=== PATIENT | female | born 1985 | race Caucasian/White ===

== ENCOUNTER 2017-01-18 15:15 | Emergency (ER) ==
[2017-01-18 15:25] VITALS: BP 120/68
[2017-01-18 15:28] LABS: URINE SOURCE CLEAN CATCH
[2017-01-18 15:29] LABS: BILIRUBIN URINE NEGATIVE (NEGATIVE); BLOOD URINE 3+ (NEGATIVE); CLARITY SL. CLOUDY (CLEAR); COLOR YELLOW; GLUCOSE URINE NEGATIVE (NEGATIVE); LEUKOCYTES URINE 2+ (NEGATIVE); NITRITE URINE NEGATIVE (NEGATIVE); PROTEIN URINE NEGATIVE (NEGATIVE); UROBILINOGEN URINE NORMAL
[2017-01-18 15:47] LABS: URINE EPITHELIAL CELLS >10 /HPF (<10)
[2017-01-18 15:48] LABS: URINE CAST NONE SEEN /LPF; URINE CRYSTAL NONE SEEN /HPF; URINE CULTURE PL NEEDED? YES
== END 2017-01-18 17:09 | disposition left against medical advice (07) ==
LOC: P.ED 15:15
DX: M54.5 Low back pain (principal)
CPT/HCPCS: 81001; 87088

== ENCOUNTER 2017-08-21 00:39 | Inpatient (IN) ==
--- NOTE | 2017-08-21 01:10 | EKG Report ---
Test Performed on : 08/21/2017 01:05:54 AM Test Reason : SOB Blood Pressure : / mmHG Vent. Rate : 095 BPM Atrial Rate : 095 BPM P-R Int : 132 ms QRS Dur : 072 ms QT Int : 358 ms P-R-T Axes : 072 044 040 degrees QTc Int : 449 ms Normal sinus rhythm. Possible Left atrial enlargement Borderline ECG When compared with ECG of 05-NOV-2016 09:27, Vent. rate has increased BY 50 BPM Unconfirmed Result
[2017-08-21] MEDS ORDERED: HYDROXYZINE PO ONE (01:27)
[2017-08-21 01:48] LABS: MANUAL DIFF NEEDED? NO
[2017-08-21 01:49] LABS: BASO% 0.2 % (0.0-0.8); EOS# 0.23 X1000 (0.0-0.7); EOS% 1.5 % (0.0-10.0); HEMATOCRIT 41.2 % (37.0-47.0); HEMOGLOBIN 14.4 g/dL (12.0-16.0); IMM GRAN# 0.06 X1000 (0.0-0.04); IMM GRAN% 0.4 % (0.0-0.5); LYMPH# 2.79 X1000 (1.2-3.4); LYMPH% 18.7 % (20.5-51.1); MCH 33.6 PG (27-31); MONO# 1.28 X1000 (0.11-0.59); MONO% 8.6 % (1.7-9.3); MPV 8.9 FL (7.4-10.4); NEUT% 70.6 % (42.2-75.2); PLT 566 X1000 (130-400); RBC 4.29 XMIL (4.2-5.4)
[2017-08-21] MEDS ORDERED: HYDROXYZINE ONE (01:53)
[2017-08-21 02:29] LABS: BE 0.8 mmoll (-3.0-3.0); BLOOD TYPE ARTERIAL; DRAW SITE R RADIAL; METHB 1.5 % (0.0-1.5); O2(CT) 16.2 mL/dL (15.0-23.0); PCO2(98.6) 39 mmHg (35-45); PO2(98.6) 55 mmHg (60-100); SAMPLE BLOOD; SAO2 94.5 % (95.0-100.0); THB 13.1 g/dL (11.5-17.4); pH(98.6) 7.42 (7.35-7.45)
[2017-08-21 02:30] LABS: UR AMPHETAMINES QUAL NONE DETECTED (NONE DETECT); UR BARBITUATES QUAL NONE DETECTED (NONE DETECT); UR BENZODIAZEPIN QUAL NONE DETECTED (NONE DETECT); UR CANNABINOIDS QUAL PRESUMPTIVE POSITIVE (NONE DETECT); UR COCAINE QUAL NONE DETECTED (NONE DETECT); UR MDMA QUAL NONE DETECTED (NONE DETECT); UR METHADONE QUAL NONE DETECTED (NONE DETECT); UR METHAMPHETAMINE QUAL NONE DETECTED (NONE DETECT); UR OPIATES QUAL NONE DETECTED (NONE DETECT); UR OXYCODONE QUAL NONE DETECTED (NONE DETECT); UR PCP QUAL NONE DETECTED (NONE DETECT); UR TCA QUAL NONE DETECTED (NONE DETECT)
[2017-08-21 02:33] LABS: ALLEN TEST YES; MODALITY ROOM AIR
[2017-08-21 02:39] LABS: AGAP 12; ALBUMIN 3.7 g/dL (3.5-5.0); ALKALINE PHOSPHATASE 92 U/L (32-104); BUN 15 mg/dL (8-22); CALCIUM 9.4 mg/dL (8.8-10.2); CHLORIDE 100 mmol/L (98-107); COSMO 279; GOT 23 U/L (10-30); GPT 15 U/L (10-36); SODIUM 139 mmol/L (136-145); TCO2 28 mmol/L (25-35); TOTAL PROTEIN 7.1 g/dL (6.3-8.3)
[2017-08-21] MEDS ORDERED: NAPROSYN PO ONE (05:42)
[2017-08-21] MEDS ORDERED: NAPROSYN ONE (05:45)
[2017-08-21] MEDS ORDERED: LEVAQUIN 750 MG/D5W 750 MG/150 ML IVPB IV ONE (05:50)
[2017-08-21] MEDS ORDERED: NICODERM PATCH ONE (06:49)
[2017-08-21] MEDS ORDERED: NICODERM PATCH TD ONE ×2 (06:49→06:52)
--- NOTE | 2017-08-21 07:25 | Diag Imaging Result Doc PS360 ---
EXAM: CHEST-2 VIEWS HISTORY: cough TECHNIQUE: Two views COMPARISON: 03/14/2016 FINDINGS: The lungs are well expanded. There is a small infiltrate in the right upper lobe. Questionable tiny infiltrate in the left base behind the heart. The heart is not enlarged. The vessels are not distended. No pleural effusions. Mild scoliosis. IMPRESSION: Small mid right lung infiltrate with a questionable infiltrate in the left base. Electronically signed by Simon Gifford 08/21/2017 7:23 AM
--- NOTE | 2017-08-21 07:29 | Diag Imaging Result Doc PS360 ---
EXAM: CT ANGIOGRM/PULMONARY ARTERIES - 08/21/2017 HISTORY: Elevated D dimer TECHNIQUE: With intravenous contrast. Axial and reformatted coronal MIP images are obtained. Low-dose protocol. COMPARISON: None. FINDINGS: There are artifacts from motion which limit detail, particularly at lower lobe pulmonary arteries. Otherwise, there are no discrete pulmonary artery filling defects identified. There is no indication of aortic dissection. There are scattered areas of consolidation bilaterally. These are suspicious for pneumonia. There is no pleural effusion or pneumothorax identified. There are small mediastinal lymph nodes which may be reactive. Included sections of upper abdomen show prominent liver with apparent fatty infiltration. There are no focal lesions identified the visualized portion of the liver. IMPRESSION: Artifacts from motion which limit detail, particularly at the lower lobe pulmonary arteries. No evidence of pulmonary embolism otherwise. Scattered areas of consolidation which are suspicious for pneumonia. Small mediastinal lymph nodes which may be reactive. Apparent hepatomegaly with fatty infiltration of the liver. The honeycomb decapper radiologist provided preliminary results at 3:02 AM on 08/21/2017. Electronically signed by Saurav Servin 08/21/2017 7:26 AM
[2017-08-21] MEDS ORDERED: NS 1,000 ML IV ONE (07:31)
[2017-08-21] MEDS ORDERED: TORADOL IV ONE (07:54)
[2017-08-21] MEDS ORDERED: ROCEPHIN 1 GM in NS 50 ML IV SCH (08:00)
[2017-08-21] MEDS ORDERED: ZOFRAN IV PRN (08:04)
[2017-08-21] MEDS ORDERED: TYLENOL PO PRN (08:04)
[2017-08-21] MEDS ORDERED: DUONEB (A & A) INH PRN (08:04)
[2017-08-21] MEDS ORDERED: TORADOL IV SCH (08:15)
[2017-08-21] MEDS ORDERED: PNEUMOVAX 23 IM ONE (08:27)
[2017-08-21] MEDS ORDERED: FLUZONE QUAD 2017-2018 SYRINGE IM ONE (08:27)
[2017-08-21] MEDS: NS 1,000 ML IV SCH (08:32)
[2017-08-21] MEDS ORDERED: DOXYCYCLINE 100 MG in NS 250 ML IV SCH (09:00)
[2017-08-21] MEDS: ROBITUSSIN-AC PO PRN ×2 (10:38→18:30)
[2017-08-21] MEDS: DOXYCYCLINE PO SCH ×2 (10:38→20:05)
[2017-08-21] MEDS: DUONEB (A & A) INH SCH ×4 (11:32→22:33)
[2017-08-21] MEDS: TORADOL IV SCH ×2 (14:30→20:06)
[2017-08-21] MEDS ORDERED: SEROQUEL PO SCH (21:00)
--- NOTE | 2017-08-21 22:08 | HISTORY AND PHYSICAL ---
CHIEF COMPLAINT: Shortness of breath and right axillary pain. HISTORY OF PRESENT ILLNESS: This is a 32-year-old female with a history of bipolar disorder, off medication and follow up for years. She presented to the emergency room complaining of a sudden onset of stabbing pain in her right axillary area. She stated that for the last week that she has had an upper respiratory infection, having cough, runny nose with almost continuous postnasal sinus drainage as well as generalized body aches. She has had subjective fevers. She denies any green or yellow sputum until this morning. She did not seek care for this during this last time due to lack of insurance. In the emergency room she is found have a white count of 14.9, with a D- dimer of 0.68, blood gas revealed a PO2 of 55. Pulmonary arteriogram was performed which revealed no pulmonary embolus, although she has scattered areas of consolidation which are suspicious for pneumonia. Blood cultures were drawn in the emergency room. She was given Levaquin and admitted for further evaluation and treatment. PAST MEDICAL HISTORY: Bipolar disorder. PAST SURGICAL HISTORY: Tubal ligation. 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 FAMILY HISTORY: Positive for hypertension in her mother. SOCIAL HISTORY: She smokes a pack a day up until last week when her illness began. She denies alcohol or illicit drug use. ALLERGIES: No known drug allergies. HOME MEDICATIONS: None. REVIEW OF SYSTEMS: Ten point review of systems discussed with patient with pertinent positives stated in HPI. She denied chest pain, palpitations, dizziness, syncope, productive cough, fever, chills, any nausea, vomiting, diarrhea, constipation, black or bloody vomitus, black or bloody stools, hematuria, dysuria, frequency, urgency. PHYSICAL EXAMINATION: GENERAL: This is a 32-year-old female sitting up in the bed, in no distress. VITAL SIGNS: Blood pressure is 115/70 with a heart rate of 67, respirations are 20, temperature is 98.5 degrees oral with room air saturations of 97%. HEENT: Head is normocephalic, atraumatic. Pupils equal, round, react to light. EOMs are intact. Sclerae anicteric. Mucous membranes are moist. NECK: Supple with trachea midline. CARDIOVASCULAR: Regular rate and rhythm. S1 and S2 are appreciated. PULMONARY: Breath sounds, she has some slight scattered wheezes, with no increased work of breathing noted. GASTROINTESTINAL: Abdomen is soft, nontender, nondistended. Bowel sounds in all 4 quadrants. EXTREMITIES: No clubbing, cyanosis, or edema. Calves nontender. Pulses are palpable x4. NEUROLOGIC: She is alert and oriented x3 with cranial nerves 2-12 grossly intact. DIAGNOSTICS: WBC is 14.9, with hemoglobin 14.4, hematocrit 41.2 and platelets of 566,000. Sodium is 139, potassium 4, BUN 15, creatinine 0.7 with a glucose of 104. Urine drug screen is positive for cannabinoids. Arterial blood gases: PH is 7.42 with a pCO2 of 39, PO2 55, a bicarb of 25. This is on room air. CTA pulmonary as stated above. ASSESSMENT AND PLAN: 1. Bilateral bronchopneumonia. 2. Right axillary pain. Very likely this is pleurisy as the pain is present on cough and respiration. It is not aggravated by movement. We will give Toradol and continue anti- inflammatory for this. 3. Hypoxemia. ABGs revealed a PO2 of 55 on room air. We will give O2 at 2 L per nasal cannula. 4. Leukocytosis, most likely secondary to #1. 5. Elevated D-dimer. She had a CTA pulmonary negative for pulmonary embolus. We will order a lower extremity Doppler for completeness and monitor. 6. History of bipolar disorder. We will start Seroquel as this was the last medication she was taking. 7. DVT prophylaxis. We will use Lovenox 40 mg. 8. GI prophylaxis. We will use Prilosec. 9. We will give supplemental oxygen DuoNebs q.4 hours and q.2 hours p.r.n. for antibiotic. Blood cultures were drawn. Sputum cultures has been obtained. For antibiotic coverage we will use doxycycline and Rocephin. Any further antibiotics will be culture driven. Incentive spirometer. 10. For tobacco abuse we will use a nicotine patch. Further treatments pending hospital course. Dictated by GUILLE Hood for Jeison Larson MD cc: GUILLE Hood MD
[2017-08-22] MEDS: TORADOL IV SCH ×2 (02:03→08:35)
[2017-08-22] MEDS: DUONEB (A & A) INH SCH ×3 (03:12→11:10)
[2017-08-22] MEDS ORDERED: PRILOSEC PO SCH (07:00)
[2017-08-22] MEDS: NS 1,000 ML IV SCH (07:22)
[2017-08-22 07:54] VITALS: BP 99/43
[2017-08-22] MEDS: ROBITUSSIN-AC PO PRN (08:34)
[2017-08-22] MEDS: DOXYCYCLINE PO SCH (08:35)
[2017-08-22] MEDS ORDERED: LOVENOX SUBQ SCH (09:00)
[2017-08-22] MEDS ORDERED: OMNICEF PO SCH (09:00)
[2017-08-22] MEDS ORDERED: NICODERM PATCH TD SCH (09:00)
--- NOTE | 2017-08-22 21:47 | PROGRESS NOTE ---
DATE: 08/22/2017 SUBJECTIVE: Patient seen and examined. She states that she is feeling better, asking if she can go home. Denies any chest pain or palpitations. Denies any cough or congestion. Currently she states she is still having some shortness of breath and wheezing but overall better. PHYSICAL EXAMINATION: Vital Signs: Reviewed. She is afebrile. Vital signs stable. Blood pressure is stable. Heart rate 20. General: Patient is awake, alert. She is currently in no respiratory distress. She is pleasant. Neck: Supple. Cardiovascular: Regular rate and rhythm. Chest: Decreased breath sounds. Mild wheezing but equal bilaterally. Better air movement than yesterday's examination. Abdomen: Soft. Extremities: Moves all extremities. Neurologic: No changes. LABS: Reviewed and stable. ASSESSMENT: 1. Bilateral pneumonia improved. 2. Right axillary pain resolved. 3. Hypoxemia resolved. She is currently 96% on room air. 4. Elevated D-dimer. CTA and ultrasounds are negative, 5. Bipolar. Notes that she is doing better on Seroquel. PLAN: We will change all of her antibiotics to oral. Stop her normal saline. Hopefully she can discharge home later this afternoon or certainly by tomorrow. I want to see how she tolerates oral antibiotics. cc: Jeison Larson MD
--- NOTE | 2017-08-23 13:42 | DISCHARGE SUMMARY ---
ADMISSION DATE: 08/21/2017 DISCHARGE DATE: 08/22/2017 DIAGNOSES: 1. Bilateral bronchopneumonia. 2. Right axillary pain, resolved. 3. Hypoxemia, resolved. 4. Elevated D-dimer with a negative CTA pulmonary. 5. History of bipolar disorder; on no medications. 6. Tobacco use. 7. Marijuana use. MICROBIOLOGY: Blood cultures and sputum culture pending. HOSPITAL COURSE: Ms. Hodge presented to the emergency room complaining of left axillary pain with coughing and deep breathing. She states that she has been coughing for about 2 weeks and that this axillary pain has increased over the last week with coughing. She was found to have bronchopneumonia. Blood cultures and sputum cultures were obtained. She was placed on Rocephin and doxycycline, DuoNebs as well as Toradol. Left axillary pain did resolve this morning, thankfully. She states that she feels much better. She has no shortness of breath. She states her cough has decreased. She has her appetite back, and she wishes to be discharged. DISCHARGE PHYSICAL EXAMINATION: Cardiovascular: Regular rate and rhythm. Pulmonary: Breath sounds are clear. No increased work of breathing noted. Gastrointestinal: Abdomen is soft, nontender, nondistended with bowel sounds in all 4 quadrants. Extremities: No clubbing, cyanosis, or edema. Calves nontender. Pulses are palpable x4. Neurologic: She is alert and oriented x3. Discharge Vital Signs: Blood pressure is 103/50 with a heart rate of 72, respirations are 18, temperature is 98.2 oral with room air saturations 99%-100%. DISCHARGE MEDICATIONS: 1. Robitussin AC 10 mL q.4-6 hours p.r.n. 2. Doxycycline 100 mg p.o. b.i.d. 3. Omnicef 300 mg p.o. b.i.d., both for 10 days. FOLLOW UP: The patient has no PCP. She was given the numbers to [facility], [facility], and [facility]. She will call if scheduled appointment to be seen in the next 2 weeks. She has been instructed to call to be seen sooner and return to emergency room for temperature greater than 101, chest pain, palpitations, dizziness, syncope, increasing shortness of breath or any questions or concerns that she may have. She is being discharged home in stable condition with family members. This is a greater than 30 minute discharge. The patient has been encouraged to stop using marijuana as well as cigarettes. Dictated by GUILLE Hood for Jeison Larson MD cc: GUILLE Hood MD
--- NOTE | 2017-08-27 15:17 | PROVIDER DOCUMENTATION ---
This chart was entered by Lorin Núñez Scribe, acting as scribe for Rafael Barker MD. HPI-Respiratory General - General Chief Complaint: Shortness of Breath Stated Complaint: SOB Time Seen by Provider: 08/21/17 01:25 Source: patient Allergies/Adverse Reactions: Patient Allergies Allergy/AdvReac Type Severity Reaction Status Date / Time No Known Allergies Allergy Verified 08/21/17 00:51 Home Medications: Home Medication List Medication Instructions Recorded Confirmed Last Taken Type CefDINIR [Omnicef] 300 mg PO BID #20 capsule 08/22/17 Unknown Rx Doxycycline 100 mg PO BID #20 tablet 08/22/17 Unknown Rx Guaifenesin/Codeine [Robitussin-AC] 10 ml PO Q4-6H PRN PRN #6 oz 08/22/17 Unknown Rx - History of Present Illness-Resp Nature of Presenting Problem: 32 year old F presents to the ED with a cc of shortness of breath, cough, and right sided chest pain with an onset of just [employer]. Pt states that this woke her from her sleep. Quality of Pain: reports: aching Severity in ED: reports: mild Onset/Duration: reports: just prior to arrival Timing: reports: still present Cough Quality/Degree: reports: mild Current Respiratory Medication Therapy: Initiated see nurses note Associated Symptoms: reports: chest pain/soreness, shortness of breath Similar Symptoms Previously?: No Recently seen or treated by another doctor?: No Review of Systems - Adult - REVIEW OF SYSTEMS - ADULT Constitutional: denies: chills, fever Eyes: reports: no symptoms reported Ears, Nose, Mouth & Throat: reports: no symptoms reported Cardiovascular: reports: chest pain. denies: palpitations Respiratory: reports: cough, shortness of breath Gastrointestinal: denies: frequent heartburn, vomiting Genitourinary: denies: dysuria, incontinence Musculoskeletal: denies: muscle aches, muscle weakness Integumentary: denies: skin sores/ulcer, skin thickening Neurological: reports: no symptoms reported Psychiatric: reports: no symptoms reported Endocrine: reports: no symptoms reported Hematologic/Lymphatic: reports: no symptoms reported Allergic/Immunologic: reports: no symptoms reported All Other Systems: Reviewed and Negative Past History - Adult - PAST MEDICAL HISTORY-ADULT Review of Records: reports: Nursing Assessment Review, Medications Reviewed Major Childhood Illnesses: reports: denies history Gastrointestinal: reports: GERD, other (esophagitis) Psychiatric: reports: anxiety, bipolar - PRIOR SURGERIES/PROCEDURES Surgical/Procedure History: reports: BTL, 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 on dangers of tobacco.: Discussed manners to quit use, and f/u contacts for add'l counseling. Substance Use: none/never Alcohol Use Frequency: never Living Situation: family Physical Exam-General - PHYSICAL EXAM-ADULT Initial Vital Signs Reviewed: Yes - CONSTITUTIONAL General Appearance: alert - RESPIRATORY Respiratory: wheezing - CARDIOVASCULAR Cardiovascular: normal peripheral pulses, regular rate, rhythm, no edema - GASTROINTESTINAL (ABDOMEN) Abdominal Exam: normal bowel sounds, non tender, soft - SKIN Integumentary: normal color, normal turgor, warm/dry - PSYCHIATRIC Psych/Mental Status: normal mood/affect, normal thought content, normal thought process, oriented x 3 Progress - PLAN OF CARE/RESULTS Progress/Plan/Lab Results: 08/21/17 02:47 Blood Culture - Final Blood NO GROWTH AFTER 5 DAYS 08/21/17 02:30 Blood Culture - Final Blood NO GROWTH AFTER 5 DAYS Orders Category Date Time Status Admit - [facility] Routine AdmDCTranf 08/21/17 05:49 Ordered Admit - [facility] Routine AdmDCTranf 08/21/17 07:31 Ordered Activity - Up with Assistance ORDERED Care 08/21/17 05:49 Active Elevate Head of Bed DIRECTED Care 08/21/17 05:49 Active Elevate Head of Bed DIRECTED Care 08/21/17 07:31 Active Encourage Fluids DIRECTED Care 08/21/17 05:49 Active Intake and Output-Strict Q 8-HR ASSESS Care 08/21/17 05:49 Active Intake and Output-Strict Q 8-HR ASSESS Care 08/21/17 07:31 Completed Nursing- Assist w/ IS as order ORDERED Care 08/21/17 05:50 Active Nursing- Assist w/ IS as order ORDERED Care 08/21/17 07:31 Active Turn, Cough and Deep Breathe Q2HR Care 08/21/17 05:49 Active Vital Signs Order Q 8-HR .ASSESS Care 08/21/17 05:49 Active Heart Healthy Diet Diet 10/05/17 05:46 Completed CHEST-2 VIEWS [RAD] Stat Exams 08/21/17 01:[address] ANGIOGRM/PULMONARY ARTERIES [CT] Stat Exams 08/21/17 03:35 Completed ABG [RESP] Routine Lab 08/21/17 02:02 Completed BLOOD CULTURE [BLDCUL] Stat Lab 08/21/17 02:47 Completed CBC WITH DIFF [HEME] Stat Lab 08/21/17 01:45 Completed CMP [COMPREHENSIVE METABOLIC PANEL] [CHEM] Stat Lab 08/21/17 01:45 Completed Ddimer [D-DIMER PL] [COAG] Stat Lab 08/21/17 01:45 Completed LACTATE, PLASMA [CHEM] Stat Lab 08/21/17 02:30 Com[address]INE DRUG SCREEN PL Stat Lab 08/21/17 02:05 Completed 0.9% Sodium Chloride Inj [Ns] 1,000 ml Med 08/21/17 07:31 Discontinued IV 100 mls/hr CefTRIAXONE [Rocephin] 1 gm Med 08/21/17 08:00 Discontinued 0.9% Sodium Chloride Inj [Ns] 50 ml IV Q24H Doxycycline 100 mg Med 08/21/17 09:00 Discontinued 0.9% Sodium Chloride Inj [Ns] 250 ml IV Q12H Hydroxyzine Med 08/21/17 01:53 Discontinued 50 mg .ROUTE .STK-MED ONE Hydroxyzine Med 08/21/17 01:27 Discontinued 50 mg PO NOW ONE Levofloxacin 750 mg/D5w [Levaquin 750 mg/D5w] Med 08/21/17 05:50 Discontinued 750 mg in 150 ml IV NOW Naproxen [Naprosyn] Med 08/21/17 05:45 Discontinued 500 mg .ROUTE .STK-MED ONE Naproxen [Naprosyn] Med 08/21/17 05:42 Discontinued 500 mg PO NOW ONE Aerosol Treatments RTQ6H.TN Oth 08/21/17 10:00 Completed Aerosol Treatments RTQ6H.TN Oth 08/21/17 16:00 Completed Aerosol Treatments RTQ6H.TN Ot 08/21/17 22:00 Completed Incentive Spirometer Routine Oth 08/21/17 05:49 Completed Incentive Spirometer Routine Oth 08/21/17 07:31 Completed Oxygen Device Routine Oth 08/21/17 05:49 Completed Oxygen Device Routine Oth 08/21/17 07:31 Completed Pulse Oximetry Routine Oth 08/21/17 05:49 Completed Pulse Oximetry Routine Oth 08/21/17 07:31 Completed EKG [EKG] Stat Ther 08/21/17 01:01 Draft Transfer/Admit Order [TRANSFER] Routine Transfer 08/21/17 05:44 Completed Result Diagrams: 08/21/17 01:45 08/21/17 01:45 - EKG 1 Time of EKG reading by physician:: 01:05 EKG Read and Signed by:: Rafael Barker EKG Interpretation (*Must complete 3 of following elements*): Abnormal Rate: 95 Rhythm: NSR Comments: possible LAE - CT/MRI 1 CT Study: Angiogram (pneumonias) Impression: Abnormal Departure - Departure Date of Disposition Decision: 08/21/17 Time of Disposition Decision: 05:43 DIAGNOSIS: Pneumonia Disposition: ADMITTED INPATIENT 09 Certified Medical Emergency: Emergent Condition: Stable - Critical Care Note This patient required my direct & personal management of CC.: No Attestation - Physician/ MIGDALIA Attestation Patient care was provided by Advanced Practice Provider:: No The physician spent face to face time with patient:: Yes Advanced Practice Provider documentation review:: Supervising physician onsite and consulted in the evaluation and care of this patient. The physician did have a face to face encounter with the patient. This chart was documented by the indicated scribe, (Lorin Núñez Scribe) and accurately reflects the services I performed and decisions made by me, Rafael Barker MD, as attested by the provider's signature.
== END 2017-08-22 12:47 | disposition home or self-care (01) ==
LOC: P.ED 00:39 → P.MEDSURG 05:52
PROVIDERS: ATTEND Family Medicine